=== PATIENT | male | born 2000 | race Two or more races ===

== ENCOUNTER 2024-11-06 12:45 | Emergency (ER) | payer OTHER ==
[~2024-11-06] VITALS: Ht 175.3 cm; Wt 106.6 kg
[2024-11-06 13:55] VITALS: BP 131/79; TEMP 97.9; O2SAT 99
== END 2024-11-06 13:55 | disposition home or self-care (01) ==
LOC: ER 12:58
DX: S80.11XA Contusion of right lower leg, initial encounter (principal); S30.810A Abrasion of lower back and pelvis, initial encounter; M79.672 Pain in left foot; V27.49XA Other motorcycle driver injured in collision with fixed or stationary object in traffic accident, initial encounter; Y93.89 Activity, other specified; Y92.488 Other paved roadways as the place of occurrence of the external cause; Y99.8 Other external cause status